=== PATIENT | male | born 1970 | race Caucasian/White ===

== ENCOUNTER → 2017-08-13 | Outpatient (CLI) | payer OTHER ==
[~2017-08-13] MED LIST: CONTRAST GIVEN. MC; IOHEXOL 300 MG/ML 10ML VIAL. IM
[2017-08-13] MEDS: IOHEXOL 300 MG/ML 100ML VIAL. IJ (09:52)
[2017-08-13] MEDS: GADOBUTROL 7.5 MMOL/7.5 ML VIAL INT ART (09:52)
[2017-08-13] MEDS: LIDOCAINE WITH 8.4% SOD BICARB 3 ML DISP.SYRIN. INJ (09:53)
== END | disposition home or self-care (01) ==
LOC: RAD 08:10
DX: M16.12 Unilateral primary osteoarthritis, left hip (principal); M87.88 Other osteonecrosis, other site
CPT/HCPCS: 73525; 73722; A9585; Q9967

== ENCOUNTER → 2017-10-12 | Outpatient (CLI) | payer OTHER ==
[~2017-10-12] MED LIST changes: -CONTRAST GIVEN. MC; +GADOBUTROL 7.5 MMOL/7.5 ML VIAL INT ART ONE; -IOHEXOL 300 MG/ML 10ML VIAL. IM; +IOHEXOL 300 MG/ML 50 ML VIAL. IJ ONE; +LIDOCAINE WITH 8.4% SOD BICARB 3 ML DISP.SYRIN. INJ ONE
--- NOTE | 2017-10-12 15:00 | RAD ---
Fluoroscopically guided right hip joint injection, 10/12/2017: History: Hip pain, pre-MRI gadolinium injection Under local anesthesia, aseptic conditions and fluoroscopic guidance a 22-gauge spinal needle was passed into the right hip joint via an anterior approach. A small amount of iodinated contrast material was injected to confirm intra-articular positioning following which 14 cc of a dilute gadolinium solution was injected into the joint. The needle was then removed and hemostasis obtained. 1.4 minutes of fluoroscopy time was utilized. 2 fluoroscopic spot images were recorded. The patient tolerated the procedure well and was sent to the MR suite in good condition.
--- NOTE | 2017-10-12 15:58 | RAD ---
MR arthrogram right hip dated 10/12/2017 2:45 PM Indication: WORSENING RIGHT HIP PAIN, [employer], NO SX HX, PREVIOUS ARTHROGRAM, 14ml OF DILUTED GADAVIST SOLUTION INJECTED , hip pain .. Comparison: 06/26/2015 Technique: Routine MR arthrogram right hip performed following the intra-articular injection of dilute gadolinium. Injection portion the study was performed by different radiologist and procedural details will be reported separately. Findings: There is geographic serpiginous signal abnormality within the subchondral femoral head, new from prior study. This appears to involve 70-80% of the articular surface, however there is no apparent subchondral collapse or cortical step-off. No significant edema in the adjacent femoral head. Moderate hypertrophic change of the right hip joint with thinning and surface irregularity of the articular cartilage throughout. Near full-thickness cartilage loss at the weightbearing surfaces femoral head and acetabulum. There is patchy subchondral edema within the anterior acetabulum. There is blunted morphology and irregular signal involving the anterior superior labrum from the 9:00 to 12:00 positions, progressed from the prior exam. The posterior labrum is grossly intact. No displaced labral tissue or significant para labral cyst. There is some susceptibility artifact along the lateral labral margin could be related to prior surgery. No loose body. There is intermediate signal within the gluteus minimus and gluteus medius tendons at their trochanteric attachment. No focal tear. No significant subtrochanteric bursal fluid collection. Proximal hamstring tendon complexes intact. Iliopsoas is intact. Visually soft tissue structures are otherwise unremarkable. There is mild enlargement of the prostate gland. Imaged portions of the pelvis are otherwise unremarkable. No free fluid. Small amount of fluid in the iliopsoas bursa. IMPRESSION: 1. Avascular necrosis of the right femoral head, new from prior study. This appears to involve 70-80% of the articular surface, however there is no apparent subchondral collapse at this time. 2. Anterior superior right hip labral tear, appears more prominent from prior study. This could be related to progression of known tear or sequela of previous labral repair and progressive degeneration. 3. 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 4. Mild gluteus medias/minimus tendinosis. Electronically signed by: Magnus Serna MD (10/12/2017 3:55 PM) -[id number]
== END | disposition home or self-care (01) ==
LOC: RAD 12:18
PROVIDERS: ATTEND Specialist
DX: S73.191A Other sprain of right hip, initial encounter (principal); M87.851 Other osteonecrosis, right femur; M16.11 Unilateral primary osteoarthritis, right hip; M94.251 Chondromalacia, right hip; M16.12 Unilateral primary osteoarthritis, left hip; N40.0 Benign prostatic hyperplasia without lower urinary tract symptoms; X58.XXXA Exposure to other specified factors, initial encounter; Y93.89 Activity, other specified; Y92.89 Other specified places as the place of occurrence of the external cause; Y99.8 Other external cause status
CPT/HCPCS: 73525; 73722; A9585; Q9967

== ENCOUNTER → 2018-09-16 | Outpatient (CLI) | payer OTHER ==
[2018-09-16 11:05] VITALS: BP 110/67
[2018-09-16 11:25] VITALS: BP 115/69
--- NOTE | 2018-09-16 11:28 | NUR ---
Patient's vital signs monitored throughout MRI and were stable. 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 No problems noted and patient left MRI ambulating without assistance.
--- NOTE | 2018-09-16 11:40 | RAD ---
MRI Lumbar Spine without contrast History: Low back pain, right hip radiculopathy Technique: Multiplanar, multi sequential noncontrast MR imaging was performed of the lumbar spine. Comparison: None Findings: Lumbar vertebral body stature and AP alignment are maintained. Conus terminates at L1. There is no significant marrow edema. Intervertebral disc spaces are mostly preserved, very mild disc desiccation throughout lumbar spine. There is small hemangioma of the posterior left L1 vertebral body. L1-2, L2-3: Spinal canal and neural foramina are adequate. L3-L4: Spinal canal and neural foramina are adequate. L4-L5: There is very minimal disc osteophyte complex. There is very mild inferior narrowing of the left neural foramen, right neural foramen adequate. Spinal canal is adequate. L5-S1: Spinal canal and neural foramina are adequate. Impression: 1. There is no lumbar spinal stenosis. There is no significant lumbar neural foramina compromise, very minimal inferior narrowing on the left at L4-5. Electronically signed by: Bjorn Rubio MD (09/16/2018 11:37 AM) [id number]
== END | disposition home or self-care (01) ==
LOC: MRI 10:05
DX: M48.061 Spinal stenosis, lumbar region without neurogenic claudication (principal); M25.78 Osteophyte, vertebrae; M54.17 Radiculopathy, lumbosacral region
CPT/HCPCS: 72148